=== PATIENT | male | born 1970 | race Caucasian/White ===

== ENCOUNTER 2025-02-23 09:29 | Emergency (ER) | payer OTHER ==
[~2025-02-23] VITALS: Ht 185.4 cm; Wt 78.7 kg
[2025-02-23] MEDS: LIDOCAINE W/EPINEPHrine 1% 20 ML VIAL SC ONE (12:45)
[2025-02-23] MEDS: AUGMENTIN 875 MG TAB PO ONE (12:46)
[2025-02-23] MEDS: TETANUS/DIPHTH/ACEL. PERTUSSIS 0.5 ML SYR IM ONE (12:47)
[2025-02-23] MEDS ORDERED: AMOX875T2 PO (13:25)
[2025-02-23 13:31] VITALS: BP 174/96; TEMP 98.8; O2SAT 100
== END 2025-02-23 13:41 | disposition home or self-care (01) ==
LOC: M ED 09:29
DX: S81.842A Puncture wound with foreign body, left lower leg, initial encounter (principal); W54.0XXA Bitten by dog, initial encounter; F10.10 Alcohol abuse, uncomplicated; Y92.009 Unspecified place in unspecified non-institutional (private) residence as the place of occurrence of the external cause; Y93.89 Activity, other specified; Y99.9 Unspecified external cause status; Z79.2 Long term (current) use of antibiotics; Z23 Encounter for immunization

== ENCOUNTER 2025-03-02 12:33 | Emergency (ER) | payer OTHER ==
[~2025-03-02] VITALS: Ht 185.4 cm; Wt 77.3 kg
[~2025-03-02 12:33] MED LIST: AMOX875T2 PO
[2025-03-02 12:35] VITALS: BP 160/97; TEMP 97.4; O2SAT 99
[2025-03-02] MEDS: LIDOCAINE 1% MDV 20 ML VIAL SC ONE (14:15)
[2025-03-02 15:02] LABS: BASO # 0.1 10^3/uL (0.0-0.2); BASO % 0.5 % (0.0-1.0); EOS # 0.0 10^3/uL (0.0-0.5); EOS % 0.3 % (0.0-3.0); LYMPH # 1.0 10^3/uL (1.5-5.0); LYMPH % 8.8 % (24.0-44.0); MONO # 1.1 10^3/uL (0.0-0.8); MONO % 9.5 % (2.0-8.0); NEUTROPHILS # 9.4 10^3/uL (1.5-8.5); NEUTROPHILS % 80.6 % (36.0-66.0); PLATELET COUNT, AUTOMATED 315 10^3/uL (150-450)
[2025-03-02] MEDS: AMPICILLIN SOD/SULBACTAM SOD 3 GM in DEXTROSE 5% (D5W) MINI-BAG PLU 100 ML IV ONE (15:04)
[2025-03-02 15:23] LABS: CALCIUM LEVEL 9.5 MG/DL (8.5-10.1); CARBON DIOXIDE LEVEL 30 MMOL/L (20-31); CHLORIDE LEVEL 100 MMOL/L (98-107); CREATININE FOR GFR 0.86 MG/DL (0.70-1.30); GLOMERULAR FILTRATION RATE > 90.0 (>56); POTASSIUM SERUM 4.2 MMOL/L (3.5-5.1); SODIUM LEVEL 139 MMOL/L (136-145)
[2025-03-02] MEDS ORDERED: AMOX875T2 PO (16:13)
== END 2025-03-02 16:39 | disposition home or self-care (01) ==
LOC: M ED 12:33
DX: L03.116 Cellulitis of left lower limb (principal); S80.12XA Contusion of left lower leg, initial encounter; W54.0XXA Bitten by dog, initial encounter; F10.10 Alcohol abuse, uncomplicated; Y92.9 Unspecified place or not applicable; Y93.89 Activity, other specified; Y99.9 Unspecified external cause status; Z79.2 Long term (current) use of antibiotics
CPT/HCPCS: 80048; 85025; 87040; 87070; 87077; 87186; 96374; 99284; J0295

== ENCOUNTER 2025-03-06 09:50 | Emergency (ER) | payer OTHER ==
[~2025-03-06] VITALS: Ht 185.4 cm; Wt 77.0 kg
[2025-03-06 11:52] VITALS: BP 142/76; TEMP 98.5; O2SAT 99
== END 2025-03-06 11:54 | disposition home or self-care (01) ==
LOC: M ED 09:50
DX: Z48.00 Encounter for change or removal of nonsurgical wound dressing (principal); W54.0XXA Bitten by dog, initial encounter; Z79.2 Long term (current) use of antibiotics